=== PATIENT | male | born 1945 | race Caucasian/White ===

== ENCOUNTER 2023-12-06 10:00 | Day surgery (SDC) | payer OTHER, SELFPAY ==
--- NOTE | 2023-12-06 09:08 | W.ANESPRE ---
General Info Date of Service Date Performed: 12/06/23 Height: 5 ft 7.5 in Weight: 95.9 kg Body Mass Index (BMI): 32.6 Surgical Procedure: Operation Date: 12/06/23 12:40 Proposed Procedure Side Surgeon p Cataract Extraction with IOL Implant Left Ihsan Garrett MD Meds Allergies and Home Medications Allergies Allergy/AdvReac Type Severity Reaction Status Date / Time atorvastatin Allergy Unknown Other (See Verified 12/04/23 13:50 Comment) niacin Allergy Unknown Unknown Verified 11/29/23 11:44 pravastatin Allergy Unknown Other (See Verified 12/04/23 13:50 Comment) simvastatin Allergy Unknown Other (See Verified 12/04/23 13:50 Comment) Home Medication ?Medication ?Instructions ?Recorded amlodipine 5 mg tablet 5 mg PO HS 11/29/23 aspirin 325 mg tablet 325 mg PO BID 11/29/23 cholecalciferol (vitamin D3) 50 50 mcg PO DAILY 11/29/23 mcg (2,000 unit) tablet diclofenac sodium 1 % gel topical 4 g topical QID PRN 11/29/23 kit (VennGel One) empagliflozin 25 mg tablet 25 mg PO DAILY 11/29/23 folic acid 1 mg tablet 1 mg PO DAILY 11/29/23 gabapentin 300 mg capsule 300 mg PO BID PRN 11/29/23 hydrochlorothiazide 50 mg tablet 50 mg PO DAILY 11/29/23 insulin glargine-yfgn 100 unit/mL 30 unit subcut BID 11/29/23 (3 mL) subcutaneous pen lisinopril 40 mg tablet 40 mg PO DAILY 11/29/23 metformin 500 mg tablet,extended 1,000 mg PO BID 11/29/23 release 24 hr methotrexate sodium 2.5 mg tablet 15 mg PO QWEEK 11/29/23 metoprolol tartrate 25 mg tablet 12.5 mg PO BID 11/29/23 rosuvastatin 20 mg tablet (Crestor) 20 mg PO HS 11/29/23 semaglutide 1 mg/dose (4 mg/3 mL) 1 mg subcut QWEEK 11/29/23 subcutaneous pen injector nihhefg-mkxqtgafbr-gkyosnr-methyl 1 applic topical QID PRN 12/04/23 salicylat topical liniment carboxymethylcellulose sodium 1 % 1 drp ophthalmic (eye) QID PRN 10/16/24 eye drops (Artificial Tears (carboxymethylcellulose)) fluorouracil 5 % topical cream 1 applic topical BID 12/04/23 (Efudex) Current Visit Medications: Current Medications Generic Name Dose Route Start Last Admin Trade Name Katarina PRN Reason Stop Dose Admin Acetaminophen 1,000 mg 12/06/23 06:40 Acetaminophen 500 Mg Tab PO 01/05/24 06:39 Q4H PRN PRN Balanced Salt Solution 500 ml 12/06/23 06:40 Balanced Salt Soln.-Plus 500 Ml Bag OP 01/05/24 06:39 DIRECTED DENISSE Miscellaneous Medication 0 ml 12/06/23 06:40 Prednisolone 1%, Moxifloxacin 0.5%, Bromfenac 0.09% 5.6ml Btl OS 01/05/24 06:39 DIRECTED DENISSE Miscellaneous Medication 0 ml 12/06/23 06:40 Tropicam./Phenyleph. (1/2.5%) 5 Ml Btl OS 01/05/24 06:39 DIRECTED DENISSE Tetracaine HCl 0 ml 12/06/23 06:40 Tetracaine 0.5% 4 Ml Btl OS 01/05/24 06:39 DIRECTED DENISSE PFSH Active Problems Active Problems: Problem Status Onset Code Posterior subcapsular age-related cataract of left eye Acute H25.042 Cortical age-related cataract, left eye Acute H25.012 Nuclear age-related cataract, left eye Acute H25.12 Medical History Medical History Arthritis, rheumatoid Pain in right lower leg Nonsustained ventricular tachycardia Allergic rhinitis Nail dystrophy Exposure to potentially hazardous substances PTSD (post-traumatic stress disorder) Hyperlipidemia Tinea pedis Actinic keratosis History of malignant neoplasm of skin Essential hypernatremia Hearing difficulty History of tinnitus Diabetes mellitus Surgical History Surgical History History of colonoscopy History of hernia repair History of back surgery Tobacco Smoking/Tobacco Use Status: Never Alcohol Alcohol Intake: current Alcohol intake frequency: holidays/special occasions only Substance Use Substance use: Never Substance use type: does not use Vital Signs and Lab Results Vital Signs Most Recent Vital Signs in EMR: Temp Pulse Resp BP Pulse Ox 36 C L 52 L 16 136/80 96 12/06/23 10:05 12/06/23 10:05 12/06/23 10:05 12/06/23 10:05 12/06/23 10:05 Lab Results Blood Type / Crossmatch: No Data to Display Complete Blood Count: No Data to Display Complete Metabolic Panel: No Data to Display Liver Function Panel: No Data to Display Coagulation Panel: No Data to Display Cardiac Panel: No Data to Display Arterial Blood Gas: No Data to Display Venous Blood Gas: No Data to Display Pancreas Panel: No Data to Display Thyroid Panel: No Data to Display Infectious Disease: No Data to Display Blood Cultures: No Data to Display Toxicology Panel: No Data to Display Anesthesia Assessment and Plan Anesthesia History Personal History: No History of Anesthesia Complications Family History: No Family History of Anesthesia Complications Exercise Tolerance Exercise Tolerance: Metabolic Equivalents>4 Cardiac & Pulmonary Exam Cardiac Exam: Normal S1/S2 Heart Sounds Pulmonary Exam: Clear Bilateral Breath Sounds Implantable Cardiac Device Does patient have a Pacemaker or an ICD?: No Airway Exam Known Difficult Airway: No Mallampati Class: 2 Mouth Opening: Normal (> 3cm) Thyromental Distance: Greater than 3 cm Neck Range of Motion: Full ROM Neck Circumference: Normal Teeth Condition: Normal Dentition ASA Classification ASA Score: ASA 3 Emergency Case?: No NPO Status NPO Status: NPO Clears >2 hours, Solids >8 hours Anesthesia Plan Resuscitation Status: Full Code Anesthesia Technique: MAC Anesthesia Airway Planned: Natural Airway Monitors Used: Standard Monitors
[2023-12-06 10:05] VITALS: BP 136/80; PULSE 52; RESP 16; TEMP 36; O2SAT 96
[2023-12-06] MEDS: Tropicam./Phenyleph. (1/2.5%) 5 ML BTL OS ×3 (10:17→10:28)
[2023-12-06 10:57] VITALS: BMI 32.6
[2023-12-06] MEDS: Lidocaine 1% Pres-Free 5 ML VIAL (11:53)
[2023-12-06] MEDS: Duovisc Viscoelastic System EACH 1 EACH (11:55)
[2023-12-06] MEDS: Povidone-Iodine Ophth 30 ML BTL (11:56)
[2023-12-06] MEDS: Balanced Salt Soln.-PLUS 500 ML BAG OP (11:56)
[2023-12-06] MEDS: Prednisolone 1%, Moxifloxacin 0.5%, Bromfenac 0.09% 5.6ML BTL OS (11:57)
[2023-12-06] MEDS: Tetracaine 0.5% 4 ML BTL OS (11:58)
[2023-12-06] MEDS: Triamcinolone 40 MG/ML VIAL (12:11)
--- NOTE | 2023-12-06 12:17 | W.PM.DSUDISC ---
Date of service: 12/06/23 Time of Service: 12:17 Discharge Plan Disposition Patient Disposition: Home Discharge Details Attending Provider: Ihsan Garrett Primary Care Provider: Renée Patel Home Meds and New Rx's Prescriptions: No Action amlodipine 5 mg tablet 5 mg PO HS rosuvastatin [Crestor] 20 mg tablet 20 mg PO HS cholecalciferol (vitamin D3) 50 mcg (2,000 unit) tablet 50 mcg PO DAILY VennGel One 1 % kit 4 g topical QID PRN Rx Instructions: apply to single knee, ankle, foot; for foot includes sole/toes/top of foot folic acid 1 mg tablet 1 mg PO DAILY gabapentin 300 mg capsule 300 mg PO BID PRN lisinopril 40 mg tablet 40 mg PO DAILY methotrexate sodium 2.5 mg tablet 15 mg PO QWEEK Rx Instructions: 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 semaglutide 1 mg/dose (4 mg/3 mL) pen injector 1 mg subcut QWEEK metformin 500 mg tablet extended release 24 hr 1,000 mg PO BID empagliflozin 25 mg tablet 25 mg PO DAILY hydrochlorothiazide 50 mg tablet 50 mg PO DAILY insulin glargine-yfgn 100 unit/mL (3 mL) insulin pen 30 unit subcut BID metoprolol tartrate 25 mg tablet 12.5 mg PO BID aspirin 325 mg tablet 325 mg PO BID fluorouracil [Efudex] 5 % cream 1 applic topical BID jmdtsge-dhq-ogqdlih-methyl jose angel Liniment 1 applic topical QID PRN Artificial Tears (cmc) 1 % drops 1 drp ophthalmic (eye) QID PRN Discharge Instructions Stand Alone Forms: DSU Post-Op CataractRose (DSU) Discharge Orders Discharge Orders: Discharge Order (Routine); Ordered 12/06/23 Ordered By: Ihsan Garrett DS: Diagnosis Discharge Diagnosis (1) Posterior subcapsular age-related cataract of left eye: Status: Resolved (2) Cortical age-related cataract, left eye: Status: Resolved (3) Nuclear age-related cataract, left eye: Status: Resolved
--- NOTE | 2023-12-06 12:18 | ROE_ITS ---
Date of service: 12/06/23 Time of Service: 12:18 Operative Note Operative Note DATE OF PROCEDURE: 12/06/23 PRE-OP DIAGNOSIS: Nuclear/cortical/posterior subcapsular cataract, left eye Poorly dilating pupil, left eye POST-OP DIAGNOSIS: same PROCEDURE: Cataract extraction using phacoemulsification with intraocular lens implant, left eye Pupillary dilation and iris stabilization with pupillary expansion device SURGEON: Ihsan Garrett ANESTHESIA TYPE: Local By Surgeon and MAC Refer to Anesthesia Record PATHOLOGY: none sent COMPLICATIONS: None Patient was transported to: same day Patient's condition: stable Implants: Kervin Clareon [id number] Indications: Progressive decreased vision due to cataract, left eye Poorly dilating pupil, 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 Pupillary dilation and iris stabilization with pupillary expansion device IOL: IOL Obstetrics Nurse Practitioner/Model: Kervin Clareon [id number] IOL Power: + 22.5 diopters IOL Serial Number: [id number] Optic Diameter: 6.0mm Haptic/Overall Diameter: 13.0mm PHACO INFO: Kervin Centurion Vision System with OZil and Active Fluidics Cumulative Dispersed Energy (CDE): 7.55 seconds SURGEON: Ihsan Garrett MD, ALESSIO ANESTHESIA: Monitored Anesthesia Care (MAC), with local sub-tenon's anesthetic infiltration COMPLICATIONS: None SPECIMENS: None INDICATIONS FOR PROCEDURE: The patient is an 78-year-old male with history of diminished visual acuity in his left eye secondary to the development of significant nuclear/cortical/posterior subcapsular cataract. 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 The option of cataract surgery was offered to the patient and he wished to proceed. See office notes for detailed information. PROCEDURE: The correct surgical eye was identified and marked as the left eye and the pupil was dilated in the preoperative area using mydriatics and cycloplegics. The dilated pupil size was 3.0 mm. The patient elected to proceed without oral sedation. The patient was brought to the operating room where cardiopulmonary monitoring was instituted and surgical time-out was performed, confirming the correct operative eye and IOL power. Topical anesthesia was administered and ophthalmic povidone-iodine 5% was instilled into the conjunctival fornices. The kali-ocular area was prepped with Betadine 10% solution and draped in the usual sterile fashion for intraocular surgery, including an aperture drape. A Tegaderm transparent film dressing was cut in half and used to cover the lashes and lid margins. Care was taken to sequester the lashes and lid margins under the Tegaderm dressing. A lid speculum was placed between the lids of the operative eye and the Kervin LuxOR Revalia operating microscope was maneuvered into position. Wesley scissors were then used to make a conjunctival buttonhole approximately 6mm posterior to the limbus in the inferonasal quadrant. Blunt dissection was carried out to expose bare sclera, and a blunt-tipped sub-tenon?s anesthesia cannula was introduced and passed posteriorly along the globe where non- preserved plain lidocaine was injected into posterior sub-Tenon?s space. A sideport knife was used to make a paracentesis port. Intraocular phenylephrine/lidocaine was injected into the anterior chamber. The anterior chamber was then filled with viscoelastic. A keratome knife was used construct a two-plane clear corneal tunnel extending 2.0mm into clear cornea. A 6.25 mm pupillary expansion device was inserted into the pupillary space and engaged with the Kuglen help. A flap was raised on the anterior capsule and capsulorhexis forceps were used to complete a continuous curvilinear capsulorhexis of 5.0 mm. Balanced salt solution was then used to perform cortical cleaving hydrodissection and nuclear hydrodelineation until the lens could be freely rotated within the capsular bag. The lens nucleus was then disassembled and removed within the capsular bag and iris plane using phacoemulsification. Residual cortical material was removed using the irrigation/aspiration handpiece. The posterior capsule was carefully polished to remove as much residual lens epithelial cells as safely possible. The capsular bag was then inflated and the anterior chamber deepened with viscoelastic. The lens implant described above was inserted into the capsular bag using the Kervin Autonome Injector. A Kuglen hook was used to dial the IOL into position. The pupillary expansion device was then removed in the reverse order on its insertion. Residual viscoelastic was then removed first from posterior to the IOL, then from the anterior chamber using the I/A handpiece. The lens implant was noted to center nicely within the capsular bag. The incisions were stromally hydrated, and the anterior chamber was reformed using BSS. Then 0.5cc of moxifloxacin 1.0mg/ml were injected into the capsular bag and anterior chamber. The inci sions were checked with a Weck spear and found to be secure. At the conclusion of the procedure, triamcinolone 20 mg and 0.5 cc were injected into the posterior sub-tenon's space using the sub-tenon's anesthesia injection cannula. Several drops of ophthalmic povidone-iodine 5% were then applied to the eye followed by two drops of combination steroid/NSAID/antibiotic solution. The drapes were removed and a clear plastic protective eye shield was placed over the eye. The patient was then returned to Same Day Surgery in stable condition.
[2023-12-06 12:19] VITALS: BP 130/74; PULSE 53; RESP 16; TEMP 36.7; O2SAT 95
--- NOTE | 2023-12-06 12:48 | W.ANESPOSTOP ---
Postoperative Evaluation Date, Time and Location Date Performed: 12/06/23 Time Performed: 12:49 Patient Location: Day Surgery Unit Vital Signs Most Recent Imported Vital Signs: Most Recent Vital Signs Temp Pulse Resp BP Pulse Ox 36.7 C 53 L 16 130/74 95 12/06/23 12:19 12/06/23 12:19 12/06/23 12:19 12/06/23 12:19 12/06/23 12:19 Pain Score Most Recent Pain Score: Most Recent Pain Score Pain Level 0 12/06/23 12:19 Assessment Mental Status: Awake (Alert & Oriented to Patient Baseline) Airway and Respiratory Function: Patent airway with normal (patient baseline) respiratory exam Cardiovascular Function: Hemodynamically Stable Hydration Status: Adequately Hydrated Nausea & Vomiting: No Nausea or Vomiting Pain: Pt. Denies Any Pain Peripheral Nerve Block: Patient did not receive a nerve block
== END 2023-12-06 12:52 | disposition home or self-care (01) ==
LOC: SUR 10:01
PROVIDERS: PCP Nurse Practitioner Family; Visit Provider Ophthalmology
PROC: (CPT 66982; principal; 2023-12-06 12:30)
DX: H25.042 Posterior subcapsular polar age-related cataract, left eye (principal); H25.012 Cortical age-related cataract, left eye; H25.12 Age-related nuclear cataract, left eye
CPT/HCPCS: 66982; 00123; V2632; J2003; J3301

== ENCOUNTER 2023-12-13 06:08 | Day surgery (SDC) | payer OTHER, SELFPAY ==
[2023-12-13 06:20] VITALS: BP 130/79; PULSE 56; RESP 18; TEMP 36.3; O2SAT 97
[2023-12-13] MEDS: Tropicam./Phenyleph. (1/2.5%) 5 ML BTL OD ×3 (06:28→06:44)
--- NOTE | 2023-12-13 06:57 | W.ANESPRE ---
General Info Date of Service Date Performed: 12/13/23 Height: 5 ft 7.5 in Weight: 93.9 kg Body Mass Index (BMI): 31.9 Surgical Procedure: Operation Date: 12/13/23 07:40 Proposed Procedure Side Surgeon p Cataract Extraction with IOL Implant Right Ihsan Garrett MD Meds Allergies and Home Medications Allergies Allergy/AdvReac Type Severity Reaction Status Date / Time atorvastatin Allergy Unknown Other (See Verified 12/13/23 06:33 Comment) niacin Allergy Unknown Unknown Verified 12/13/23 06:33 pravastatin Allergy Unknown Other (See Verified 12/13/23 06:33 Comment) simvastatin Allergy Unknown Other (See Verified 12/13/23 06:33 Comment) Home Medication ?Medication ?Instructions ?Recorded amlodipine 5 mg tablet 5 mg PO HS 11/29/23 aspirin 325 mg tablet 325 mg PO BID 11/29/23 cholecalciferol (vitamin D3) 50 50 mcg PO DAILY 11/29/23 mcg (2,000 unit) tablet diclofenac sodium 1 % gel topical 4 g topical QID PRN 11/29/23 kit (VennGel One) empagliflozin 25 mg tablet 25 mg PO DAILY 11/29/23 folic acid 1 mg tablet 1 mg PO DAILY 11/29/23 gabapentin 300 mg capsule 300 mg PO BID PRN 11/29/23 hydrochlorothiazide 50 mg tablet 50 mg PO DAILY 11/29/23 insulin glargine-yfgn 100 unit/mL 30 unit subcut BID 11/29/23 (3 mL) subcutaneous pen lisinopril 40 mg tablet 40 mg PO DAILY 11/29/23 metformin 500 mg tablet,extended 1,000 mg PO BID 11/29/23 release 24 hr methotrexate sodium 2.5 mg tablet 15 mg PO QWEEK 11/29/23 metoprolol tartrate 25 mg tablet 12.5 mg PO BID 11/29/23 rosuvastatin 20 mg tablet (Crestor) 20 mg PO HS 11/29/23 semaglutide 1 mg/dose (4 mg/3 mL) 1 mg subcut QWEEK 11/29/23 subcutaneous pen injector inbzmui-psifrmgqvy-amxrmem-methyl 1 applic topical QID PRN 12/04/23 salicylat topical liniment carboxymethylcellulose sodium 1 % 1 drp ophthalmic (eye) QID PRN 10/16/24 eye drops (Artificial Tears (carboxymethylcellulose)) fluorouracil 5 % topical cream 1 applic topical BID 12/04/23 (Efudex) Current Visit Medications: Current Medications Generic Name Dose Route Start Last Admin Trade Name Katarina PRN Reason Stop Dose Admin Acetaminophen 1,000 mg 12/13/23 06:00 Acetaminophen 500 Mg Tab PO 01/12/24 05:59 Q4H PRN PRN Balanced Salt Solution 500 ml 12/13/23 06:00 Balanced Salt Soln.-Plus 500 Ml Bag OP 01/12/24 05:59 DIRECTED DENISSE Miscellaneous Medication 0 ml 12/13/23 06:00 Prednisolone 1%, Moxifloxacin 0.5%, Bromfenac 0.09% 5.6ml Btl OD 01/12/24 05:59 DIRECTED DENISSE Miscellaneous Medication 0 ml 12/13/23 06:00 12/13/23 06:44 Tropicam./Phenyleph. (1/2.5%) 5 Ml Btl OD 01/12/24 05:59 1 drp DIRECTED DENISSE Administration Tetracaine HCl 0 ml 12/13/23 06:00 Tetracaine 0.5% 4 Ml Btl OD 01/12/24 05:59 DIRECTED DENISSE PFSH Active Problems Active Problems: Problem Status Onset Code Posterior subcapsular age-related cataract, right eye Acute H25.041 Nuclear age-related cataract, right eye Acute H25.11 Posterior subcapsular age-related cataract of left eye Resolved H25.042 Cortical age-related cataract, left eye Resolved H25.012 Nuclear age-related cataract, left eye Resolved H25.12 Medical History Medical History Arthritis, rheumatoid Pain in right lower leg Nonsustained ventricular tachycardia Allergic rhinitis Nail dystrophy Exposure to potentially hazardous substances PTSD (post-traumatic stress disorder) Hyperlipidemia Tinea pedis Actinic keratosis History of malignant neoplasm of skin Essential hypernatremia Hearing difficulty History of tinnitus Diabetes mellitus Surgical History Surgical History Status post cataract extraction and insertion of intraocular lens of left eye History of colonoscopy History of hernia repair History of back surgery Tobacco Smoking/Tobacco Use Status: Never Alcohol Alcohol Intake: current Alcohol intake frequency: holidays/special occasions only Substance Use Substance use: Never Substance use type: does not use Vital Signs and Lab Results Vital Signs Most Recent Vital Signs in EMR: Most Recent Vital Signs Temp Pulse Resp BP Pulse Ox 36.3 C L 56 L 18 130/79 97 12/13/23 06:20 12/13/23 06:20 12/13/23 06:20 12/13/23 06:20 12/13/23 06:20 Point of Care Results Point of Care Results: Finger Stick Blood Glucose 89 12/13/23 06:51 Lab Results Blood Type / Crossmatch: No Data to Display Complete Blood Count: No Data to Display Complete Metabolic Panel: No Data to Display Liver Function Panel: No Data to Display Coagulation Panel: No Data to Display Cardiac Panel: No Data to Display Arterial Blood Gas: No Data to Display Venous Blood Gas: No Data to Display Pancreas Panel: No Data to Display Thyroid Panel: No Data to Display Infectious Disease: No Data to Display Blood Cultures: No Data to Display Toxicology Panel: No Data to Display Anesthesia Assessment and Plan Anesthesia History Personal History: No History of Anesthesia Complications Family History: No Family History of Anesthesia Complications Exercise Tolerance Exercise Tolerance: Metabolic Equivalents>4 Cardiac & Pulmonary Exam Cardiac Exam: Normal S1/S2 Heart Sounds Pulmonary Exam: Clear Bilateral Breath Sounds Implantable Cardiac Device Does patient have a Pacemaker or an ICD?: No Airway Exam Known Difficult Airway: No Mallampati Class: 2 Mouth Opening: Normal (> 3cm) Thyromental Distance: Greater than 3 cm Neck Range of Motion: Full ROM Neck Circumference: Normal Teeth Condition: Normal Dentition ASA Classification ASA Score: ASA 3 Emergency Case?: No NPO Status NPO Status: NPO Clears >2 hours, Solids >8 hours Anesthesia Plan Resuscitation Status: Full Code Anesthesia Technique: MAC Anesthesia Airway Planned: Natural Airway Monitors Used: Standard Monitors Preoperative Comments:: No MKO
[2023-12-13 07:21] VITALS: BMI 31.9
[2023-12-13] MEDS: Povidone-Iodine Ophth 30 ML BTL (07:37)
[2023-12-13] MEDS: Lidocaine 1% Pres-Free 5 ML VIAL (07:44)
[2023-12-13] MEDS: Duovisc Viscoelastic System EACH 1 EACH (07:47)
[2023-12-13] MEDS: Balanced Salt Soln.-PLUS 500 ML BAG OP (07:48)
[2023-12-13] MEDS: Prednisolone 1%, Moxifloxacin 0.5%, Bromfenac 0.09% 5.6ML BTL OD (07:48)
[2023-12-13] MEDS: Tetracaine 0.5% 4 ML BTL OD (07:49)
[2023-12-13] MEDS: Trypan Blue 0.06% 0.5 ML SYR (07:55)
[2023-12-13 08:17] VITALS: BP 133/84; PULSE 56; RESP 18; TEMP 36.7; O2SAT 95
--- NOTE | 2023-12-13 08:20 | W.PM.DSUDISC ---
Date of service: 12/13/23 Time of Service: 08:20 Discharge Plan Disposition Patient Disposition: Home Discharge Details Attending Provider: Ihsan Garrett Primary Care Provider: Renée Patel Home Meds and New Rx's Prescriptions: No Action amlodipine 5 mg tablet 5 mg PO HS rosuvastatin [Crestor] 20 mg tablet 20 mg PO HS cholecalciferol (vitamin D3) 50 mcg (2,000 unit) tablet 50 mcg PO DAILY VennGel One 1 % kit 4 g topical QID PRN Rx Instructions: apply to single knee, ankle, foot; for foot includes sole/toes/top of foot folic acid 1 mg tablet 1 mg PO DAILY gabapentin 300 mg capsule 300 mg PO BID PRN lisinopril 40 mg tablet 40 mg PO DAILY methotrexate sodium 2.5 mg tablet 15 mg PO QWEEK Rx Instructions: 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 semaglutide 1 mg/dose (4 mg/3 mL) pen injector 1 mg subcut QWEEK metformin 500 mg tablet extended release 24 hr 1,000 mg PO BID empagliflozin 25 mg tablet 25 mg PO DAILY hydrochlorothiazide 50 mg tablet 50 mg PO DAILY insulin glargine-yfgn 100 unit/mL (3 mL) insulin pen 30 unit subcut BID metoprolol tartrate 25 mg tablet 12.5 mg PO BID aspirin 325 mg tablet 325 mg PO BID fluorouracil [Efudex] 5 % cream 1 applic topical BID fklxbrr-wer-plapeis-methyl jose angel Liniment 1 applic topical QID PRN Artificial Tears (cmc) 1 % drops 1 drp ophthalmic (eye) QID PRN Discharge Instructions Stand Alone Forms: D[facility] Post-Op CataractRose (DSU) Discharge Orders Discharge Orders: Discharge Order (Routine); Ordered 12/13/23 Ordered By: Ihsan Garrett DS: Diagnosis Discharge Diagnosis (1) Posterior subcapsular age-related cataract, right eye: Status: Resolved (2) Nuclear age-related cataract, right eye: Status: Resolved
--- NOTE | 2023-12-13 08:20 | W.PM.OP ---
Date of service: 12/13/23 Time of Service: 08:20 Operative Note Operative Note DATE OF PROCEDURE: 12/13/23 PRE-OP DIAGNOSIS: Nuclear/posterior subcapsular cataract, right eye poorly dilating pupil, right eye POST-OP DIAGNOSIS: same PROCEDURE: Cataract extraction using phacoemulsification with intraocular lens implant, right eye Pupillary dilation and iris stabilization with pupillary expansion device SURGEON: Ihsan Garrett ANESTHESIA TYPE: Local By Surgeon and MAC Refer to Anesthesia Record ESTIMATED BLOOD LOSS: 0 PATHOLOGY: none sent COMPLICATIONS: None Patient was transported to: same day Patient's condition: stable Implants: Kervin Clareon [id number] Indications: Progressive decreased vision due to cataract, right eye Poorly dilating pupil with extensive synechia Procedure Description: CATARACT SURGERY OPERATIVE REPORT PREOPERATIVE DIAGNOSIS: Nuclear/posterior subcapsular cataract, right eye Poorly dilating pupil, right eye POSTOPERATIVE DIAGNOSIS: Same OPERATION: Cataract extraction using phacoemulsification with posterior chamber intraocular lens implant, right eye. IOL: IOL [employer]/Model: Kervin Clareon [id number] IOL Power: + 23.0 diopters IOL Serial Number: [id number] Optic Diameter: 6.0mm Haptic/Overall Diameter: 13.0mm PHACO INFO: Kervin Centurion Vision System with OZil and Active Fluidics Cumulative Dispersed Energy (CDE): 4.94 seconds SURGEON: Ihsan Garrett MD, ALESSIO ANESTHESIA: Monitored Anesthesia Care (MAC), with local sub-tenon's anesthetic infiltration COMPLICATIONS: None SPECIMENS: None INDICATIONS FOR PROCEDURE: The patient is an 78-year-old gentleman with history of diminished visual acuity in both eyes secondary to the development of bilateral cataracts. He has already undergone cataract surgery in the left eye and is doing well postoperatively. He now presents for cataract surgery in the right eye. 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 The option of cataract surgery was offered to the patient and he wished to proceed. See office notes for detailed information. PROCEDURE: The correct surgical eye was identified and marked as the right eye and the pupil was dilated in the preoperative area using mydriatics and cycloplegics. The dilated pupil size was 4.0 mm. The patient elected to proceed without oral sedation. The patient was brought to the operating room where cardiopulmonary monitoring was instituted and surgical time-out was performed, confirming the correct operative eye and IOL power. Topical anesthesia was administered and ophthalmic povidone-iodine 5% was instilled into the conjunctival fornices. The kali-ocular area was prepped with Betadine 10% solution and draped in the usual sterile fashion for intraocular surgery, including an aperture drape. A Tegaderm transparent film dressing was cut in half and used to cover the lashes and lid margins. Care was taken to sequester the lashes and lid margins under the Tegaderm dressing. A lid speculum was placed between the lids of the operative eye and the Kervin LuxOR Revalia operating microscope was maneuvered into position. Wesley scissors were then used to make a conjunctival buttonhole approximately 6mm posterior to the limbus in the inferonasal quadrant. Blunt dissection was carried out to expose bare sclera, and a blunt-tipped sub-tenon?s anesthesia cannula was introduced and passed posteriorly along the globe where non-preserved plain lidocaine was injected into posterior sub-Tenon?s space. A sideport knife was used to make a paracentesis port. Intraocular phenylephrine/lidocaine was injected into the anterior chamber. The anterior chamber was then filled with cohesive viscoelastic, and the posterior synechia were broken. A keratome knife was used to construct a two--plane clear corneal tunnel extending 2.0mm into clear cornea. A 6.25 mm Malyugin ring was then inserted into the pupillary space and engaged with the Kuglen hook. The cohesive viscoelastic was then removed using the irrigation/aspiration handpiece, and VisionBlue was then painted over the anterior capsule. After 30 seconds, the VisionBlue was irrigated out of the anterior chamber, and the anterior chamber was filled with dispersive viscoelastic. A flap was raised on the anterior capsule and capsulorhexis forceps were used to complete a continuous curvilinear capsulorhexis of 5.0 mm. Balanced salt solution was then used to perform cortical cleaving hydrodissection and nuclear hydrodelineation until the lens could be freely rotated within the capsular bag. The lens nucleus was then disassembled and removed within the capsular bag and iris plane using phacoemulsification. Residual cortical material was removed using the I/A handpiece. The posterior capsule was carefully polished to remove as much residual lens epithelial cells as safely possible. The capsular bag was then inflated and the anterior chamber deepened with cohesive viscoelastic. The lens implant described above was inserted into the capsular bag using the Kervin Autonome Injector. A Kuglen hook was used to dial the IOL into position. The pupillary expansion device was then removed in the reverse order of its insertion. Residual viscoelastic was then removed first from posterior to the IOL, then from the anterior chamber using the I/A handpiece. The lens implant was noted to center nicely within the capsular bag. The incisions were stromally hydrated, and the anterior chamber was reformed using BSS. Then 0.5cc of moxifloxacin 1.0mg/ml were injected into the capsular bag and anterior chamber. The incisions were checked with a Weck spear and found to be secure. Several drops of ophthalmic povidone-iodine 5% were then applied to the eye followed by two drops of combination steroid/NSAID/antibiotic solution. The drapes were removed and a clear plastic protective eye shield was placed over the eye. The patient was then returned to Same Day Surgery in stable condition.
--- NOTE | 2023-12-13 08:40 | W.ANESPOSTOP ---
Postoperative Evaluation Date, Time and Location Date Performed: 12/13/23 Time Performed: 08:19 Patient Location: Day Surgery Unit Vital Signs Most Recent Imported Vital Signs: Most Recent Vital Signs Temp Pulse Resp BP Pulse Ox 36.7 C 56 L 18 133/84 95 12/13/23 08:17 12/13/23 08:17 12/13/23 08:17 12/13/23 08:17 12/13/23 08:17 Pain Score Most Recent Pain Score: Most Recent Pain Score Pain Level 0 12/13/23 08:17 Assessment Mental Status: Awake (Alert & Oriented to Patient Baseline) Airway and Respiratory Function: Patent airway with normal (patient baseline) respiratory exam Cardiovascular Function: Hemodynamically Stable Hydration Status: Adequately Hydrated Nausea & Vomiting: No Nausea or Vomiting Pain: Pt. Denies Any Pain Peripheral Nerve Block: Other (Local by Dr. Garrett)
== END 2023-12-13 08:31 | disposition home or self-care (01) ==
LOC: SUR 06:08
PROVIDERS: PCP Nurse Practitioner Family; Visit Provider Ophthalmology
PROC: (CPT 66982; principal; 2023-12-13 07:30)
DX: H25.041 Posterior subcapsular polar age-related cataract, right eye (principal); H25.11 Age-related nuclear cataract, right eye
CPT/HCPCS: 66982; 00123; V2632; J2003